=== PATIENT | female | born 1995 | race Hispanic/Latino ===

== ENCOUNTER 2018-10-28 17:01 | Inpatient (IN) | payer BC ==
[~2018-10-28 17:01] MED LIST: Dexamethasone 20 MG/5 ML VIAL ONE; Ketorolac Tromethamine 30 MG/ML VIAL ONE; Ondansetron PF 4 MG/2 ML Vial ONE; ePHEDrine 50 MG/ML VIAL ONE
[2018-10-28 17:38] VITALS: BMI 35.2
[2018-10-28] MEDS ORDERED: Butorphanol Tartrate 1 MG/ML VIAL SLOW IVP PRN (18:26)
[2018-10-28] MEDS ORDERED: HYDROcodone/Acetaminophen 5/325 mg Tablet PO PRN ×2 (18:26)
[2018-10-28] MEDS ORDERED: NS / Oxytocin 40 units/1000ml 1,000 ML IV PRN (18:26)
[2018-10-28] MEDS ORDERED: Acetaminophen 500 MG TAB PO PRN (18:26)
[2018-10-28] MEDS ORDERED: Ondansetron PF 4 MG/2 ML Vial IVP PRN ×2 (18:26→22:11)
[2018-10-28] MEDS ORDERED: Lidocaine 1% (PF) 30 ML VIAL SC PRN (18:26)
[2018-10-28] MEDS ORDERED: hydrALAZINE 20 MG/ML VIAL SLOW IVP PRN (18:26)
[2018-10-28] MEDS ORDERED: Promethazine HCl 25 MG/ML VIAL IM PRN ×2 (18:26→22:11)
[2018-10-28] MEDS ORDERED: Ibuprofen 800 MG TAB PO PRN (18:26)
[2018-10-28] MEDS ORDERED: NS w/ Oxytocin 10 units 500 ML IV SCH (18:30)
[2018-10-28] MEDS ORDERED: Lactated Ringer's 1,000 ML IV SCH (18:30)
[2018-10-28] MEDS: Lactated Ringer's 1,000 ML IV SCH (19:38)
[2018-10-28 19:44] LABS: Hemoglobin 12.1 g/dL (12.0-16.0); Mean Corpuscular HGB CONC 33.6 g/dL (32.0-36.0); Mean Corpuscular Hemoglobin 26.2 pg (27.0-31.0); Mean Corpuscular Volume 78.1 fL (78.0-98.0); Mean Platelet Volume 10.4 fL (7.4-10.4); Platelet Count 185 thou/uL (130-400); RBC Distribution Width 14.5 % (11.5-14.5); Red Blood Cell (RBC) Count 4.61 mill/uL (4.20-5.40); White Blood Cell (WBC) Count 11.4 thou/uL (4.8-10.8)
--- NOTE | 2018-10-28 20:22 | PDOC.LDHP ---
Labor and Delivery H&P Chief complaint: loss of fluid HPI: 23yo at 38w1d with c/o LOF since 1630, clear, some cramps. No VB. Current gestational age (weeks): 38 Due date: 11/10/18 Dating criteria: last menstrual period Grav: 2 Para: 1 Current complications: none Abnormal US findings: No Past Medical History: blindness in one eye Current medications: pre- vitamins Previous surgical history: low tranverse CS Allergies/Adverse Reactions: Allergies Allergy/AdvReac Type Severity Reaction Status Date / Time No Known Allergies Allergy Unverified 10/28/18 17:38 Social history: none - Physical Exam Vital signs reviewed and normal: yes General: NAD Heart: RRR Lungs: CTAB Abdomen: gravid Extremeties: no edema FHT: category 1 [place] contractions every: 4min - Vaginal Exam cm dilated: 1 Effacement: 50% Station: -3 - OB Labs Blood type: A RH: positive Antibody Screen: negative HIV: negative RPR: negative HEPSAg: negative 1 hour GCT: negative GBS: negative Urine drug screen: negative Rubella: immune - Assessment L&D Assessment: term rupture in membranes - Plan Plan: admit to L&D, to OR for section, informed consent obtained, anesthesia consult for pain management -: After extensive discussion with use of records supervisor, pt desires repeat CS.
[2018-10-28 20:25] LABS: HBSAg Index 0.14 S/CO (0-0.99); Hep B Surf Ag Non-Reactive S/CO (NonReactive); Syphilis Antibody Nonreactive (Nonreactive); Syphilis Antibody Index 0.03 S/CO (<1.00 Non-Reactive)
[2018-10-28] MEDS ORDERED: Azithromycin 500 MG in Sodium Chloride 0.9% 250 ML 250 ML IVPB SCH (20:30)
[2018-10-28] MEDS ORDERED: Bicitra 30 ML UDCUP PO SCH (20:30)
[2018-10-28] MEDS ORDERED: CEFAZOLIN 2 GM in Premix Bag 1 BAG IVPB SCH (20:30)
[2018-10-28] MEDS ORDERED: MORPHINE 5 MG/10 ML PF VIAL ONE (21:21)
[2018-10-28] MEDS ORDERED: Dexamethasone 4 mg/ml Vial ONE (21:22)
[2018-10-28] MEDS ORDERED: Oxytocin 10 UNITS/ML VIAL ONE (21:22)
[2018-10-28] MEDS ORDERED: Ondansetron PF 4 MG/2 ML Vial ONE (21:22)
[2018-10-28] MEDS ORDERED: ePHEDrine/0.9% NaCl/PF SYRINGE 50 mg/10 ml ONE (21:22)
[2018-10-28] MEDS ORDERED: Ketorolac Tromethamine 30 MG/ML VIAL ONE (21:22)
[2018-10-28] MEDS ORDERED: Methylergonovine 0.2 MG/ML VIAL ONE (21:53)
[2018-10-28] MEDS ORDERED: Meperidine HCl/PF 25 MG/ML VIAL SLOW IVP PRN (22:11)
[2018-10-28] MEDS ORDERED: diphenhydrAMINE 50 MG/ML VIAL IVP PRN (22:11)
[2018-10-28] MEDS ORDERED: Naloxone HCl 0.4 mg/ml Vial IV PRN (22:11)
[2018-10-28] MEDS ORDERED: Ondansetron HCl/PF 4 MG/2 ML Vial IVP PRN (22:11)
[2018-10-28] MEDS ORDERED: Promethazine HCl 25 MG SUPP PR PRN (22:11)
[2018-10-28] MEDS ORDERED: Naloxone HCl 0.4 mg/ml Vial IVP PRN ×2 (22:11)
[2018-10-28] MEDS ORDERED: HYDROmorphone 2 MG/ML VIAL SLOW IVP PRN (22:11)
[2018-10-28] MEDS ORDERED: L&D-Morphine 4 MG/ML VIAL SLOW IVP PRN (22:11)
[2018-10-28] MEDS ORDERED: Communication Order-Pharmacy FS SCH (22:15)
--- NOTE | 2018-10-28 22:57 | PDOC.OPDEL ---
OB Operative/Delivery Note Delivery Dr/Surgeon: Camilla Assist: Mynor PGY3 Pre-Delivery Diagnosis: ruptured membrane (, prior CS x 1, declines TOLAC) Procedure/Post Delivery Dx: repeat low transverse CS Weeks gestation: 38 Anesthesia: spinal - Findings A Sex: male - 1 min: 9 - 5 min: 9 - Additional Findings/Plan Placenta delivered: spontaneous findings: low transverse hysterotomy without extension, normal uterus, normal tubes, normal ovaries Estimated blood loss: 400cc Post delivery plan: routine recovery
[2018-10-29] MEDS ORDERED: Acetaminophen 325 MG TAB PO PRN (00:30)
[2018-10-29] MEDS ORDERED: diphenhydrAMINE 25 MG CAP PO PRN (00:30)
[2018-10-29] MEDS ORDERED: Ondansetron PF 4 MG/2 ML Vial IVP PRN (00:30)
[2018-10-29] MEDS ORDERED: Lanolin Ointment 7 GM TUBE TOP PRN (00:30)
[2018-10-29] MEDS ORDERED: Simethicone Chewable 80 MG TAB PO PRN (00:30)
[2018-10-29] MEDS ORDERED: Promethazine HCl 25 MG/ML VIAL IM PRN (00:30)
[2018-10-29] MEDS ORDERED: hydrALAZINE 20 MG/ML VIAL SLOW IVP PRN (00:30)
[2018-10-29] MEDS ORDERED: Zolpidem Tartrate 5 MG TAB PO PRN (00:30)
[2018-10-29] MEDS ORDERED: Bisacodyl 10 MG SUPP PR PRN (00:30)
[2018-10-29] MEDS: Lactated Ringer's 1,000 ML IV SCH (03:25)
[2018-10-29] MEDS: Ketorolac Tromethamine 30 MG/ML VIAL IVP SCH ×4 (04:00→22:50)
--- NOTE | 2018-10-29 04:34 | OP ---
DATE OF PROCEDURE: 10/28/2018 PREOPERATIVE DIAGNOSES: 1. Intrauterine at 38 weeks and 1 day. 2. Term rupture of membranes. 3. Prior section x1, declines trial of labor. POSTOPERATIVE DIAGNOSES: 1. Intrauterine at 38 weeks and 1 day. 2. Term rupture of membranes. 3. Prior section x1, declines trial of labor. PROCEDURE PERFORMED: Repeat low-transverse section via Pfannenstiel skin incision. ANESTHESIA: Spinal. MOBILE PATROL OFFICER SURGEON: Sandra Lowe MD, PGY-3. ESTIMATED BLOOD LOSS: 400 mL. IVF: 1200 mL of crystalloid. URINE OUTPUT: 200 mL of clear urine. COMPLICATIONS: None. DRAINS: Delgado catheter. PATHOLOGY: None. FINDINGS: Male infant, cephalic presentation, clear amniotic fluid. Apgars 9 and 9. Weight is pending. Normal uterus, ovaries, and tubes. Hysterotomy without extension. Slight uterine atony resolved with Pitocin and Methergine 0.2 IM. DESCRIPTION OF PROCEDURE: The patient was taken to the operating room, where spinal anesthesia was obtained without difficulty. The patient was prepped and draped in a sterile fashion in dorsal supine position with leftward tilt. After ensuring adequacy of anesthesia, a Pfannenstiel skin incision was made and carried down to the underlying subcutaneous tissue with the knife and the Bovie. The fascia was nicked in the midline with the Bovie and carried laterally with the Falk scissors. The superior aspect of the fascia was tented with 2 Kala's and dissected off the rectus bluntly. The inferior aspect of the fascia was tented with 2 Kala's and dissected off the rectus with the Falk scissors. The rectus was then bluntly divided in the midline. The peritoneum was bluntly entered into and manually retracted. The Randolph O retractor was placed. The vesicouterine peritoneum was incised and a bladder flap was created digitally. The lower uterine segment was incised in a transverse fashion and extended with a Mni maneuver. The infant's head was brought to the hysterotomy atraumatically and delivered with fundal pressure followed by the body. The 's cord was clamped after delay cord clamping was performed and the infant was handed to awaiting [facility] staff. The cord blood was obtained and placenta was allowed to spontaneously deliver. The uterus was exteriorized, cleared of all clots and debris, and placed back into the abdomen. The hysterotomy was repaired with a #1 Monocryl in a running locking fashion. An additional [id number] stitch of #1 Monocryl was placed in the mid hysterotomy for oozing. Hemostasis was noted to be excellent. Irrigation was performed of the pelvis and suctioned. Hemostasis was again noted of the hysterotomy and bladder flap. The Randolph O retractor was removed. The rectus muscles were examined and noted to be hemostatic. The fascia was reapproximated with a 0 PDS suture x2 with excellent reapproximation. The subcutaneus tissue was irrigated and cauterized of any bleeders and reapproximated with a 2-0 plain gut in a running fashion. The skin was closed with 4-0 Monocryl in subcuticular fashion. Dermabond was applied as well as a pressure dressing. The patient tolerated the procedure well. Sponge, lap, and needle counts were correct x2. The patient was taken to recovery room in stable condition. The patient received Ancef 2 g and azithromycin 500 mg IV for surgical prophylaxis. Job ID: [id number]
[2018-10-29 06:48] LABS: Hemoglobin 10.4 g/dL (12.0-16.0); Mean Corpuscular HGB CONC 32.9 g/dL (32.0-36.0); Mean Corpuscular Hemoglobin 25.8 pg (27.0-31.0); Mean Corpuscular Volume 78.6 fL (78.0-98.0); Mean Platelet Volume 10.4 fL (7.4-10.4); Platelet Count 190 thou/uL (130-400); RBC Distribution Width 14.3 % (11.5-14.5); Red Blood Cell (RBC) Count 4.02 mill/uL (4.20-5.40); White Blood Cell (WBC) Count 18.2 thou/uL (4.8-10.8)
--- NOTE | 2018-10-29 09:06 | PDOC.PP ---
Post Progress Note Post Day #: 1 PO intake tolerated: yes Flatus: no Ambulation: no Vital Signs (12 hours) Temp Pulse Resp BP Pulse Ox 10/29/18 08:02 97.7 F 55 L 20 105/58 L 97 10/29/18 03:15 97.9 F 53 L 18 100/53 L 98 10/29/18 02:10 97.7 F 53 L 18 113/57 L 98 10/29/18 00:45 97.6 F 54 L 18 110/56 L 98 Weight Weight 180 lb - Physical Examination General: NAD Respiratory: non-labored breathing Abdominal: no distention, appropriately TTP Fundus firm & at: umb-2 Extremities: negative homans (B) Skin: CS incision dry & intact Neurological: no gross focal deficits Psychiatric: normal affect Result Diagrams: 10/29/18 06:23 Additional Labs: Post Labs Blood Type A POSITIVE 10/28/18 21:09 Hep Bs Antigen Non-Reactive S/CO (NonReactive) 10/28/18 19:32 - Assessment/Plan POD1 s/p RCS VSSAF Appropriate milestones postop, advance diet, DC white, ambulate. Hgb 10.4 mild anemia due to surgical blood loss, no sx, cont PNV Rh pos RImm Breast & bottle Cont postop care, possible home tomorrow.
[2018-10-29] MEDS: Ferrous Sulfate 325 MG TAB PO SCH ×2 (09:07→22:50)
[2018-10-29] MEDS: Prenatal Vitamin 1 TAB PO SCH (09:08)
[2018-10-29] MEDS: Docusate Calcium (SURFAK) 240 MG CAP PO SCH ×2 (09:08→21:21)
[2018-10-29] MEDS ORDERED: HYDROcodone/Acetaminophen 5/325 mg Tablet PO PRN ×2 (10:15)
[2018-10-29] MEDS ORDERED: Adacel (T-DAP) 0.5 ML SYRINGE IM ONE (21:00)
[2018-10-29] MEDS: Ibuprofen 800 MG TAB PO SCH (21:21)
[2018-10-30] MEDS: Ibuprofen 800 MG TAB PO SCH (06:39)
[2018-10-30 08:16] VITALS: BP 109/53; TEMP 98
[2018-10-30] MEDS: Ferrous Sulfate 325 MG TAB PO SCH (09:32)
[2018-10-30] MEDS: Docusate Calcium (SURFAK) 240 MG CAP PO SCH (10:14)
[2018-10-30] MEDS: Prenatal Vitamin 1 TAB PO SCH (10:14)
--- NOTE | 2018-10-30 11:29 | DIS ---
DATE OF ADMISSION: 10/28/2018 DATE OF DISCHARGE: 10/30/2018 ADMITTING DIAGNOSES: 1. Intrauterine at 38 weeks. 2. Spontaneous rupture of membranes. 3. Prior section, desires repeat. DISCHARGE DIAGNOSES: 1. Intrauterine at 38 weeks. 2. Spontaneous rupture of membranes. 3. Prior section, desires repeat. PROCEDURE: Repeat lower transverse section at term. CONSULTATIONS: None. HOSPITAL COURSE: The patient is a 23-year-old, G2, P1 female, who presented to Labor and Delivery at 38 weeks with spontaneous rupture of membranes. was performed by Dr. Sampson. For complete details, please refer to her operative note. The patient is now postoperative day 2. Her postoperative course has been uncomplicated. Today, she reports she is tolerating p.o., voiding on her own, having decreased lochia and good pain control. PHYSICAL EXAMINATION: VITAL SIGNS: Blood pressure is 91/50, temperature 97.9, pulse of 85, and respiratory rate of 18. GENERAL: She appears to be in no acute distress. She is alert and oriented, cooperative and pleasant to interact with. HEENT: Head is normocephalic, atraumatic. ABDOMEN: Fundus is firm. Incision is clean, dry, and intact. EXTREMITIES: Nontender. Nonedematous. The patient is being discharged to home. She has instructions to make an appointment with Dr. Sampson in 2 weeks for an incision check. She also has instructions to seek medical attention sooner if she experiences fever, increasing pain or bleeding, drainage or redness at the incision site. The patient will be discharged home with pain medications as prescribed by Dr. Sampson, who reports that they have already been called into pharmacy. Job ID: [id number]
--- NOTE | 2018-11-02 06:24 | PQF ---
[employer] Winform ViewerBRICEHERACLIO RAMOS PATRICIA FLEMING [id number] CLINICAL DOCUMENTATION CLARIFICATION FORM: POST DISCHARGE Addendum to original discharge summary date: ____ Late entry note date: __ DATE: 11/02/2018 ATTN: PATRICIA FLEMING Please exercise your independent, professional judgment in responding to the clarification form. Clinical indicators are provided on the bottom of this form for your review Please check appropriate box(s): [ X ] Acute blood loss anemia [ ] Chronic Anemia [ ] Anemia Unspecified [ ] Other diagnosis [ ] Unable to determine In addition, please specify: Present on Admission (POA): [ X ] Yes [ ] No [ ] Unable to determine For continuity of documentation, please document condition throughout progress notes and discharge summary. Thank You. CLINICAL INDICATORS - SIGNS / SYMPTOMS / LABS Anemia due to surgical blood loss - Documented in PNs on 10/29 by PATRICIA FLEMING HGB 10.4 on 10/29 - Documented in Laboratory results HCT 31.6 on 10/29 - Documented in Laboratory results EBL 400cc - Documented in operative reports on 10/28 BP - 91/50 on 11/02 , 109/53 on 10/30 - Documented in Vitals Signs Pulse 57 on 10/29- Documented in Vitals Signs RISK FACTORS Repeat low transverse c section - Operative reports 10/28 TREATMENTS: Lactate ringers 1000ml - documented in Medication snapshot (This form is maintained as a part of the permanent medical record) 2014 [employer] All Rights Reserved [email or web address] [not provided] [email or web address]
== END 2018-10-30 11:05 | disposition home or self-care (01) | DRG 787 ==
LOC: L&D/OP 17:01 → L&D 18:27 → 3SW 10-29 00:48
PROVIDERS: ADMIT Student in an Organized Health Care Education/Training Program; ATTEND Student in an Organized Health Care Education/Training Program
PROC: 10D00Z1 Extraction of Products of Conception, Low, Open Approach (ICD-10-PCS; principal; 2018-10-28)
DX: O34.211 Maternal care for low transverse scar from previous cesarean delivery (principal); D62 Acute posthemorrhagic anemia; Z3A.38 38 weeks gestation of pregnancy; Z37.0 Single live birth; O99.02 Anemia complicating childbirth
CPT/HCPCS: 36415; 51702; 85027; 86780; 86850; 86900; 86901; 87340; 99285; J0456; J0690; J1100; J1885; J2210; J2274; J2405; J2590; J3490; J7050